=== PATIENT | male | born 1980 | race Two or more races ===

== ENCOUNTER → 2022-03-13 | Emergency (ER) | payer SELFPAY ==
[~2022-03-13] VITALS: Ht 167.6 cm; Wt 87.4 kg
[~2022-03-13] MED LIST: ACETAMINOPHEN 500 MG TAB PO ONE; LEVO-28 PO; cefTRIAXone SOD 1,000 MG VL IM ONE
[2022-03-13 15:34] VITALS: BP 120/70
[2022-03-13 15:58] LABS: Basophils # (auto) 0 10 ^3/uL (0-0.2); Basophils % (auto) 0.4 % (0.0-2.0); Eosinophils # (auto) 0 10 ^3/uL (0-0.8); Eosinophils % (auto) 0.1 % (0.0-7.0); Hematocrit 47.5 % (41.0-53.0); Hemoglobin 16.2 g/dL (13.5-17.5); Lymphocytes # (auto) 0.9 10 ^3/uL (0.4-5.4); Lymphocytes % (auto) 11.9 % (10.0-50.0); Mean Corpuscular Hemoglobin 27.2 pg (28.0-32.0); Mean Corpuscular Hgb Conc. 34.1 g/dL (32.0-36.0); Mean Corpuscular Volume 79.8 fL (80.0-100.0); Monocytes # (auto) 0.9 10 ^3/uL (0-1.3); Monocytes % (auto) 12.5 % (0.0-12.0); Neutrophils # (auto) 5.6 10 ^3/uL (1.6-8.6); Neutrophils % (auto) 75.1 % (37.0-80.0); Nucleated Red Blood Cells % 0.1 %; Red Blood Cells 5.95 10^6/uL (4.5-5.90); Red Cell Distribution Width 14.2 % (11.8-14.3); White Blood Cell 7.4 10^3/uL (4.4-10.8)
[2022-03-13 16:13] LABS: Albumin 4.1 g/dL (3.4-5.0); Calcium 9.6 mg/dL (8.5-10.1); Potassium 4.4 mmol/L (3.5-5.1)
[2022-03-13 16:17] LABS: BUN/Creatinine Ratio 15.9; Bilirubin, Total 1.6 mg/dL (0.2-1.0); Total Protein 7.1 g/dL (6.4-8.2)
== END | disposition home or self-care (01) ==
LOC: ER 15:14
DX: J06.9 Acute upper respiratory infection, unspecified (principal); R07.89 Other chest pain; F17.210 Nicotine dependence, cigarettes, uncomplicated
CPT/HCPCS: 36415; 71045; 80053; 84484; 85025; 93005

== ENCOUNTER 2025-04-20 06:29 | Emergency (ER) | payer OTHER ==
[~2025-04-20] VITALS: Ht 170.2 cm; Wt 93.4 kg
[~2025-04-20 06:29] MED LIST changes: -ACETAMINOPHEN 500 MG TAB PO ONE; -LEVO-28 PO; +LEVO500T91 PO; -cefTRIAXone SOD 1,000 MG VL IM ONE
--- NOTE | 2025-04-20 06:57 | ED.PDOC ---
GI ASSESSMENT HPI Comments 45 year old male presents to the ED with a chief compliant of abdominal pain onset 2 months. Patient has been experiencing abdominal pain, umbilical region, for the past 2 months, began after lifting at work. Pain has worsened the last 2 weeks, saw PCP, was sent for XR, no results have been given. He noticed pain worsens with lifting. He describes pain as a discomfort, has a "full" sensation. Denies fever, chills, fall, nausea, vomiting, diarrhea, constipation, hematemesis, dizziness, blurred vision, dysuria, hematuria. No other symptoms or modifying factors present at this time. Chief Complaint: Abdominal Pain Time Seen by MD: 06:50 Reviewed Notes: Medications, Allergies Allergies: Coded Allergies: Amoxicillin (Verified Allergy, Unknown, 04/20/25) Home Meds Active Scripts Levofloxacin Hemihydrate (LEVOFLOXACIN) 500 Mg Tab, 500 MG PO DAILY for 10 Days, #10 MG Prov:ANT CABRAL MD 03/13/22 Information Source: Patient Mode of Arrival: Ambulatory Timing: Months Duration: Since onset Prehospital treatment: None Vomitus: None Severity: Moderate Recent: None Recent Hx of: None Pain Location: Periumbilical Modifying Factors: Nothing Associated sign and symptoms: Abdominal Pain, None Past Medical History PAST MEDICAL HISTORY: Denies Surgical History: Denies all surgeries Family History Family History: Reviewed,noncontributory to illness Social History Smoker: Cigarettes, Less Than 1 Pack/Day Alcohol: Denies ETOH Use Drugs: Denies Drug Use Lives In: Home Constitutional: denies: chills, diaphoresis, fatigue, fever, malaise, sweats, weakness, others EENTM: denies: blurred vision, double vision, ear bleeding, ear discharge, ear drainage, ear pain, ear ringing, eye pain, eye redness, hearing loss, mouth pain, mouth swelling, nasal discharge, nose bleeding, nose congestion, nose pain, photophobia, tearing, throat pain, throat swelling, voice changes, others Respiratory: denies: cough, hemoptysis, orthopnea, SOB at rest, shortness of breath, SOB with excertion, stridor, wheezing, others Cardiovascular: denies: chest pain, dizzy spells, diaphoresis, Dyspnea on exertion, edema, irregular heart beat, left arm pain, lightheadedness, palpitations, PND, syncope, others Gastrointestinal: reports: abdominal pain; denies: abdomen distended, blood streaked bowels, constipated, diarrhea, dysphagia, difficulty swallowing, hematemesis, melena, nausea, poor appetite, poor fluid intake, rectal bleeding, rectal pain, vomiting, others Genitourinary: denies: burning, dysuria, flank pain, frequency, hematuria, incontinence, penile discharge, penile sore, pain, testicle pain, testicle swelling, urgency, others Neurological: denies: dizziness, fainting, headache, left sided numbness, left sided weakness, numbness, paresthesia, pre-existing deficit, right sided numbness, right sided weakness, seizure, speech problems, tingling, tremors, weakness, others Musculoskeletal: denies: back pain, gout, joint pain, joint swelling, muscle pain, muscle stiffness, neck pain, others Integumetry: denies: bruises, change in color, change in hair/nails, dryness, laceration, lesions, lumps, rash, wounds, others Allergic/Immunocompromised: denies: Difficulty Healing, Frequent Infections, Hives, Itching, others Hematologic/Lymphatic: denies: anemia, blood clots, easy bleeding, easy bruising, swollen glands, others Endocrine: denies: excessive hunger, excessive sweating, excessive thirst, excessive urination, flushing, intolerance to cold, intolerance to heat, unexplained weight gain, unexplained weight loss, others Psychiatric: denies: anxiety, bipolar disorder, depression, hopeless, panic disorder, schizophrenia, sleepless, suicidal, others All Other Systems: Reviewed and Negative Physical Exam General Appearance: Normal HEENT: Normal ENT Inspection, Pharynx Normal, TMs Normal Neck: Full Range of Motion, Non-Tender, Normal, Normal Inspection Respiratory: Chest Non-Tender, Lungs Clear, No Accessory Muscle Use, No Respiratory Distress, Normal Breath Sounds Cardiovascular: No Edema, No JVD, No Murmur, No Gallop, Normal Peripheral Pulses, Regular Rate/Rhythm Breast Exam: Deferred Gastrointestinal: Epigastric (tenderness), No Organomegaly, No Pulsatile Mass, Normal Bowel Sounds, Tenderness (epigastric) Genitalia: Deferred Pelvic: Deferred Rectal: Deferred Extremities: No calf tenderness, Normal capillary refill, Normal inspection, Normal range of motion, Non-tender, No pedal edema Musculoskeletal : Apperance: Normal Neurologic: Alert, road advisor II-XII nml as Tested, No Motor Deficits, Normal Affect, Normal Mood, No Sensory Deficits Cerebellar Function: Normal Reflexes: Normal Skin: Dry, Normal Color, Warm Lymphatic: No Adenopathy Was a procedure done? Was a procedure done?: No GI differential Dx Differential Diagnosis: Gastroenteritis, Hernia X-Ray, Labs, Meds, VS Vital Signs Date Time Temp Pulse Resp B/P (MAP) Pulse Ox O2 Delivery O2 Flow Rate FiO2 04/20/25 07:27 97.9 64 16 112/75 (87) 99 97.9 04/20/25 06:36 98.1 65 16 132/88 100 98.1 Lab Test 04/20/25 07:23 Range/Units White Blood Count 8.2 4.4-10.8 10^3/uL Red Blood Count 5.87 4.5-5.90 10^6/uL Hemoglobin 15.6 13.5-17.5 g/dL Hematocrit 46.1 41.0-53.0 % Mean Corpuscular Volume 78.5 L 80.0-100.0 fL Mean Corpuscular Hemoglobin 26.7 L 28.0-32.0 pg Mean Corpuscular Hemoglobin Concent 34.0 32.0-36.0 g/dL Red Cell Distribution Width 14.8 H 11.8-14.3 % Platelet Count 270 140-450 10^3/uL Mean Platelet Volume 8.6 6.9-10.8 fL Neutrophils (%) (Auto) 66.1 37.0-80.0 % Lymphocytes (%) (Auto) 23.8 10.0-50.0 % Monocytes (%) (Auto) 7.0 0.0-12.0 % Eosinophils (%) (Auto) 2.5 0.0-7.0 % Basophils (%) (Auto) 0.6 0.0-2.0 % Neutrophils # (Auto) 5.4 1.6-8.6 10 ^3/uL Lymphocytes # (Auto) 1.9 0.4-5.4 10 ^3/uL Monocytes # (Auto) 0.6 0-1.3 10 ^3/uL Eosinophils # (Auto) 0.2 0-0.8 10 ^3/uL Basophils # (Auto) 0 0-0.2 10 ^3/uL Nucleated Red Blood Cells 0.1 % Sodium Level 141 136-145 mmol/L Potassium Level 4.6 3.5-5.1 mmol/L Chloride Level 105 98-107 mmol/L Carbon Dioxide Level 29 20-31 mmol/L Anion Gap 7 5-15 Blood Urea Nitrogen 12 9-23 mg/dL Creatinine 1.01 0.700-1.30 mg/dL Glomerular Filtration Rate Calc 94 >90 mL/min BUN/Creatinine Ratio 11.9 10.0-20.0 Serum Glucose 101 74-106 mg/dL Calcium Level 10.4 8.7-10.4 mg/dL Lipase 38 12-53 U/L [facility] [id number] [place] [address] Ph: [phone] DIAGNOSTIC IMAGING Diagnostic Imaging Report : [id number] Signed PATIENT: ADELE WALSH ACCT: [id number] UNIT: [id number] : 1980 LOC: ER ROOM / BED: / AGE / SEX: 45 / M ADM STATUS: REG ER SERVICE 5 ORDERING PHYSICIAN: MONICA BORGES MD PROCEDURE(s): CXRP - CHEST PORTABLE REASON: epigastric pain ORDER NUMBER(s): [id number], ACCESSION NUMBER(s): [id number] INDICATION: epigastric pain TECHNIQUE: Frontal view of the chest. COMPARISON: CHEST PORTABLE on DOS: 03/13/22, EKG on DOS: 03/13/22, CXRP on DOS: 03/13/22, EKG on DOS: 03/13/22 FINDINGS: . The heart and mediastinal contours are grossly unremarkable. There is no evidence of pleural disease. The lungs are clear. The bony structures of the chest are intact without fracture. IMPRESSION: 1. No evidence of acute disease. ATED BY: JOHN EISENBERG MD DICTATED DATE/TIME: 04/20/25731 SIGNED BY: JOHN EISENBERG MD SIGNED DATE/TIME: 04/20/25731 CC: Time of 1ST Reevaluation: 07:20 Reevaluation 1ST: Unchanged Patient Education/Counseling: Diagnosis, Treatment, Prognosis Family Education/Counseling: No Family Present SEPSIS Sepsis Screen Date sepsis recognized/suspect: Apr 20, 2025 Time Sepsis recognized/suspect: 06 Recent Procedure: No Respiratory Rate >20: No Heart Rate >90: No Temp<36 C (96.8 F) or >38.3 C: No SBP <90 or MAP <65 mmHG: No New Acute Mental Status Change: No Is the patient on CPAP, BIPAP,: No Physician Orders Chest Portable (04/20/25 06:56) Vital Signs Date Time Temp Pulse Resp B/P (MAP) Pulse Ox O2 Delivery O2 Flow Rate FiO2 04/20/25 07:27 97.9 64 16 112/75 (87) 99 97.9 04/20/25 06:36 98.1 65 16 132/88 100 98.1 Laboratory Tests Test 04/20/25 07:23 White Blood Count 8.2 10^3/uL (4.4-10.8) Departure 1 Departure Time of Disposition: 09:51 (Patient has a ventral wall hernia. Patient's labs are otherwise benign. The hernia is not incarcerated. We will discharge patient home with surgery follow up.) Impression: Primary Impression: Ventral hernia Disposition: 01 HOME / SELF CARE / HOMELESS Condition: Stable Referrals: ADELE HORN MD Additional Instructions: You have ventral hernia. You were referred to General surgery for repair. Please call for an appointment. For pain you can take the followinam: Ibuprofen 400mg with food Noon: Acetaminophen 1000mg 4pm: Ibuprofen 400mg with food 8pm: Acetaminophen 1000mg You should follow up with your regular doctor within one week to ensure you are doing better. If your symptoms worsen or you have any other concerns then please return to the ER. Discharged With: Self Critical Care Note Critical Care Time?: No Stability Stability form required: No Heart Score Heart Score: Heart Score Response (Comments) Value History N/A 0 EKG N/A 0 Age N/A 0 Risk Factors N/A 0 Troponin N/A 0 Total 0 I personally scribed for MONICA BORGES MD ([email or web address]) on 04/20/25 at 06:57. Electronically submitted by Genesis Ortiz ([email or web address]). I personally scribed for MONICA BORGES MD ([email or web address]) on 04/20/25 at 08:06. Electronically submitted by Genesis Ortiz ([email or web address]). MONICA BORGES MD Apr 20, 2025 06:57
--- NOTE | 2025-04-20 07:34 | DVH ---
INDICATION: epigastric pain TECHNIQUE: Frontal view of the chest. COMPARISON: CHEST PORTABLE on DOS: 03/13/22, EKG on DOS: 03/13/22, CXRP on DOS: 03/13/22, EKG on DOS: 03/13/22 FINDINGS: . The heart and mediastinal contours are grossly unremarkable. There is no evidence of pleural disease. The lungs are clear. The bony structures of the chest are intact without fracture. IMPRESSION: 1. No evidence of acute disease.
[2025-04-20 08:16] LABS: Hemoglobin 15.6 g/dL (13.5-17.5); Mean Corpuscular Hemoglobin 26.7 pg (28.0-32.0); Mean Corpuscular Volume 78.5 fL (80.0-100.0); Nucleated Red Blood Cells % 0.1 %
[2025-04-20 08:18] LABS: Hematocrit 46.1 % (41.0-53.0)
[2025-04-20 08:21] LABS: Chloride 105 mmol/L (98-107); Potassium 4.6 mmol/L (3.5-5.1); Sodium 141 mmol/L (136-145)
[2025-04-20 08:23] LABS: Anion Gap 7 (5-15); Calcium 10.4 mg/dL (8.7-10.4); Carbon Dioxide 29 mmol/L (20-31)
[2025-04-20 08:28] LABS: BUN/Creatinine Ratio 11.9 (10.0-20.0); Blood Urea Nitrogen 12 mg/dL (9-23); Glucose 101 mg/dL (74-106)
[2025-04-20 09:07] LABS: Lipase 38 U/L (12-53)
[2025-04-20 09:53] VITALS: BP 132/88; PULSE 57; RESP 16; TEMP 97.4; O2SAT 99
== END 2025-04-20 10:18 | disposition home or self-care (01) ==
LOC: ER 06:29
DX: K43.9 Ventral hernia without obstruction or gangrene (principal); F17.210 Nicotine dependence, cigarettes, uncomplicated; Z88.0 Allergy status to penicillin; Z79.899 Other long term (current) drug therapy
CPT/HCPCS: 36415; 71045; 80048; 83690; 85025